=== PATIENT | female | born 1975 | race Two or more races ===

== ENCOUNTER 2024-12-12 07:30 | Day surgery (SDC) | payer OTHER, SELFPAY ==
[2024-12-10 10:39] VITALS: BMI 25.6
--- NOTE | 2024-12-10 10:47 | EKG_ITS ---
[facility] Test Date: 2024-12-10 Pat Name: ELKIN SWEET Department: Room: - Gender: Female Design Lead: JEFRY : 1975 Requested By: Joey Camacho Order Number: [id number] Reading MD: Joey Camacho Measurements Intervals Amery Rate: 75 P: 48 KS: 146 QRS: 72 QRSD: 89 T: 55 QT: 352 QTc: 395 Interpretive Statements SINUS RHYTHM POSSIBLE RIGHT VENTRICULAR CONDUCTION DELAY No previous ECG available for comparison /store/S0/[id number]
[2024-12-10 12:35] LABS: Basophils # (Auto) 0.1 Thou/mm3 (0.0-0.2); Basophils % (Auto) 1 % (0-2.5); Eosinophils # (Auto) 0.1 Thou/mm3 (0.0-0.5); Eosinophils % (Auto) 1 % (0-10); Hematocrit 37.7 % (36.0-46.0); Hemoglobin 12.5 g/dL (12.0-16.0); Immature Granulocytes % (Auto) 0 % (0-0); Immature Granulocytes Auto 0.01 Thou/mm3 (0.00-0.00); Lymphocytes # (Auto) 1.8 Thou/mm3 (1.0-4.8); Lymphocytes % (Auto) 32 % (10-50); Mean Corpuscular HGB Conc 33.2 g/dl (31.0-37.0); Mean Corpuscular Hemoglobin 27.1 pg (25.0-35.0); Mean Corpuscular Volume 82 fL (80-100); Monocytes # (Auto) 0.5 Thou/mm3 (0.0-0.8); Monocytes % (Auto) 9 % (0-12); Neutrophils # (Auto) 3.3 Thou/mm3 (1.8-7.7); Neutrophils % (Auto) 57 % (37-80); Nucleated Red Blood Cell % 0 /100 WBC (0); Platelet Count 226 Thou/mm3 (140-440); RDW Standard Deviation 38.8 fL (36.4-46.3); Red Blood Count 4.61 Miln/mm3 (4.00-5.20); White Blood Count 5.7 Thou/mm3 (3.6-11.0)
[2024-12-10 13:01] LABS: Alanine Aminotransferase 19 U/L (10-49); Albumin, Serum 4.9 gm/dL (3.5-5.0); Albumin/Globulin Ratio 1.7 (1.2-2.2); Alkaline Phosphatase 108 U/L (46-116); Anion Gap 7 (7-16); Aspartate Amino Transferase 22 U/L (0-34); BUN/Creatinine Ratio 19 Ratio (12-20); Bilirubin,Total 0.5 mg/dL (0.3-1.2); Blood Urea Nitrogen 13 mg/dL (9-23); Calcium 9.9 mg/dL (8.3-10.6); Calcium (Corrected) 9.9 mg/dL (8.5-10.1); Carbon Dioxide 26.1 mMol/L (20.0-31.0); Chloride 104 mMol/L (98-107); Creatinine (Component) 0.7 mg/dL (0.6-1.3); Estimated Creatinine Clearance 95.4 mL/min (>60); Globulin 2.9 gm/dL (2.3-3.5); Glucose 102 mg/dL (74-106); Osmolality,Calculated 273 (275-295); Potassium 3.9 mMol/L (3.4-5.1); Sodium 137 mMol/L (136-145); Total Protein 7.8 gm/dL (5.7-8.2); eGFR > 60 See Note
[2024-12-12] VITALS (7 sets, daily range): BP systolic 97–112; BP diastolic 59–74; PULSE 66–80; RESP 12–18; TEMP 36.4–36.7; O2SAT 99–100; BMI 25.3
--- NOTE | 2024-12-12 09:55 | ESOP_ITS ---
Date of Procedure 12/12/24 Pre Op Diagnosis Right shoulder soft tissue mass Post Op Diagnosis Right shoulder subfascial soft tissue mass Procedure Excision of subfascial soft tissue mass from right shoulder Findings An approximately 4.5 cm subfascial soft tissue mass on the posterior aspect of right shoulder Procedure Description Patient brought into the operating room in supine position. After administration of general tracheal anesthesia, patient was placed in left lateral decubitus position. The mass was palpated noted to be in the posterior aspect of right shoulder. The area was prepped and draped in standard surgical manner. After administration of local anesthesia a 5 cm elliptical incision was made and dissection was deepened into soft tissue. The mass was palpated noted to be subfascial. The fascia was opened. The underlying mass was circumferentially dissected out surrounding tissue and underlying muscle. The mass was excised. It was measuring to be approximately 4.5 cm, was lipomatous in nature. The wound was washed and irrigated and hemostasis achieved using electrocautery. Fascia reapproximated with interrupted sutures using 2-0 Vicryl. Subcutaneous tissue closed with interrupted sutures using 2-0 Vicryl and the incision was closed with 4-0 Monocryl in subcuticular fashion. Dermabond applied. Sterile pressure dressings placed. Patient tolerated procedure well. She was placed in supine position then extubated. She was breathing spontaneously and without difficulty and was transferred to [facility] in stable condition. Instruments, needles and sponge counts were reported to be correct x 2. Anesthesia GETA and local Pathology / specimen Other (Right shoulder soft tissue mass) Estimated Blood Loss 2 Condition Stable Disposition PACU Surgeon Stef Trevino MD Surgical Staff Operation Date: 12/12/24 09:45 <No data on this case meets the specified criteria>
--- NOTE | 2024-12-12 10:11 | SUR.PHASEI ---
1011 Patient arrived to recovery resting comfortably in [facility], drowsy and able to respond to verbal prompting, on oxygen 6L via oxy mask, breathing unlabored, vital signs stable. denies pain, dressing intact to right upper back; dermabond, telfa, gauze, medipore tape, no bleeding noted, lung sounds clear upon auscultation, bilateral radial pulses present when palpated, report received from Michael GROVES and Uma WATSON/ Osvaldo DIRECTOR OF HOSPITALITY
--- NOTE | 2024-12-12 11:04 | SUR.PHASEII ---
1104 Patient meets discharge criteria from recovery, awake and alert, breathing unlabored, vital signs stable, denies pain, dressing intact; no bleeding noted, patient drinking water; denies nausea, patient assisted with dressing into her clothing by this tag writer, discharge instructions given to patient and patients friend, friend signed discharge instructions. Patient given all her belongings prior to discharge, transported via wheelchair and left in a private vehicle.
== END 2024-12-12 11:04 | disposition home or self-care (01) ==
PROVIDERS: Anesthesiology; PCP Family Medicine; Referring Provider Surgery; Visit Provider Surgery
PROC: (CPT 23076; principal; 2024-12-12 09:30)
DX: D17.21 Benign lipomatous neoplasm of skin and subcutaneous tissue of right arm (principal); Z01.810 Encounter for preprocedural cardiovascular examination
CPT/HCPCS: 23076; 36415; 80048; 80053; 85025; 93005; A4217; A4649; J0131; J0690; J1100; J2250; J2371; J2405; J2704; J3010; J3490

== ENCOUNTER → 2025-05-02 | Outpatient (CLI) | payer OTHER, SELFPAY ==
--- NOTE | 2025-05-02 14:30 | XR_ITS ---
Examination: Screening digital mammography, bilateral Computer aided detection 3-D breast Tomosynthesis, bilateral Date and time of exam: May 02, 2025 1405 hours Compared to mammograms dating to 07/21/2017 Indication: Screening Technique: Nonmagnified MLO, CC views of the breasts to been obtained, reconstructed from 3-D Tomosynthesis images. R2 computer aided detection program utilized for evaluation of suspicious masses and/or abnormal calcifications. 3-D Tomosynthesis images obtained. Findings: The breasts are heterogeneously dense, which may obscure small masses Benign calcifications There is lobulation of the left breast implant which is grossly intact No interval suspicious masses Impression: BI-RADS category II: Benign Findings. Recommend 1 year follow-up mammogram.
== END | disposition home or self-care (01) ==
PROVIDERS: Referring Provider Physician Assistant; Visit Provider Physician Assistant
DX: Z12.39 Encounter for other screening for malignant neoplasm of breast (principal); R92.1 Mammographic calcification found on diagnostic imaging of breast; Z98.82 Breast implant status; R92.333 Mammographic heterogeneous density, bilateral breasts
CPT/HCPCS: 77063; 77067